=== PATIENT | female | born 1980 | race Caucasian/White ===

== ENCOUNTER 2021-04-16 11:05 | Outpatient (CLI) | payer OTHER, SELFPAY ==
[2021-04-16 11:26] LABS: Hematocrit 33.7 % (37.0-47.0); Hemoglobin 11.5 g/dL (12.0-15.0)
== END 2021-04-16 11:06 | disposition home or self-care (01) ==
PROVIDERS: Visit Provider Obstetrics & Gynecology
DX: O03.9 Complete or unspecified spontaneous abortion without complication (principal); Z3A.00 Weeks of gestation of pregnancy not specified
CPT/HCPCS: 36415; 85014; 85018; 86900; 86901

== ENCOUNTER 2021-04-20 15:30 | Observation (INO) | payer OTHER, BC, SELFPAY ==
[2021-04-15 14:10] VITALS: BMI 25.4
--- NOTE | 2021-04-17 08:01 | PM.IMHP ---
H&P: HPI History of Present Illness Date/Time: 04/17/21 08:01 41-year-old 2 para 1 admitted for suction dilatation and curettage secondary to incomplete AB. Ultrasound proved proves no growth in the fetus. She is admitted for suction dilatation curettage Chief Complaint: incomplete AB Review of Systems Review of Systems: All systems reviewed & are unremarkable except as noted in HPI and below PMFSH Social History Social History Smoking status: Never smoker Alcohol intake: former Meds Home Medications and Allergies Home Medications Medication Instructions Recorded Confirmed Type cetirizine [Zyrtec] 10 mg PO DAILY 04/15/21 04/15/21 History ibuprofen 400 mg PO DAILY PRN 04/15/21 04/15/21 History magnesium 750 mg PO DAILY 04/15/21 04/15/21 History Allergies Allergy/AdvReac Type Severity Reaction Status Date / Time sulfamethoxazole Allergy Swelling Verified 04/15/21 14:03 [From Bactrim] trimethoprim [From Bactrim] Allergy Swelling Verified 04/15/21 14:03 Exam Const: General: no acute distress Eyes: General: appearance normal, both eyes and all related structures Neck: Neck: supple and no JVD Thyroid: thyroid normal Resp: Effort & Inspection: normal respiratory effort Auscultation: clear to auscultation bilaterally Cardio: Rate: regular rate Rhythm: regular rhythm GI: Inspection: non-distended GI Palp: Yes Soft to palpation, No Tenderness to palpation present (GI) and No Guarding due to palpation present (GI) Auscultation: normal bowel sounds : External Female Exam: normal external appearance Speculum Exam - Vagina: normal appearance of the vagina Bimanual exam- vagina & uterus: enlarged Skin: General skin exam: no rashes or lesions noted Extrem: General: normal to inspection and no edema Psych: Mental Status: mental status grossly normal Affect: normal affect Assessment and Plan Additional Plan impression: Incomplete AB Plan: Suction dilatation curettage
[2021-04-20] VITALS (26 sets, daily range): BP systolic 73–112; BP diastolic 56–84; PULSE 59–112; RESP 12–18; TEMP 36.6–37; O2SAT 100; BMI 25.1
--- NOTE | ~2021-04-20 | US_ITS ---
EXAMINATION: US pelvic complete DATE: 04/20/2021 13:41 INDICATION: Hemorrhage after D&C TECHNIQUE: Multiple transabdominal and endovaginal sonographic images of the pelvis were obtained. COMPARISON: None. FINDINGS: The uterus measures 8.9 x 5.9 x 6.4 cm. There is a Grayson catheter in the endometrial canal to 10 cannot bleeding. The endometrial complex is difficult to measure due to the presence of the Fol ey catheter. The ovaries are not visualized however no adnexal abnormality is seen. There is no free fluid in the pelvis. IMPRESSION: 1. No sonographic correlate identified for the patient's symptoms. Reviewed, dictated and finalized at location A.
--- NOTE | 2021-04-20 10:36 | WPDHPUPDATE1 ---
History and Physical Update Update Date/Time: 04/20/21 10:36 History and Physical has been reviewed, including an updated exam of the patient. There are NO changes in the patient's condition. Risks, benefits, and alternatives have been discussed and questions answered. Patient agrees to proceed with procedure.
--- NOTE | 2021-04-20 11:20 | P.PNAN_ITS ---
Anes - Initial Pre Proc Eval Procedure: Operation Date: 04/20/21 12:30 Proposed Procedures p Suction Dilatation and Curettage - Zachariah Piper MD Date/Time: 04/20/21 11:20 Surgeon: Zachariah Piper MD Pre Op Diagnosis: missed AB Patient Data Age: 41 Gender: F Height: 1.75 m Weight: 78 kg Allergies Allergy/AdvReac Type Severity Reaction Status Date / Time sulfamethoxazole Allergy Swelling Verified 04/20/21 11:17 [From Bactrim] trimethoprim [From Bactrim] Allergy Swelling Verified 04/20/21 11:17 Home Medications Medication Instructions Recorded Confirmed Type cetirizine [Zyrtec] 10 mg PO DAILY 04/15/21 04/20/21 History ibuprofen 400 mg PO DAILY PRN 04/15/21 04/20/21 History magnesium 750 mg PO DAILY 04/15/21 04/20/21 History hydrocodone-acetaminophen 1 tablet PO Q4H PRN #20 tablet 04/20/21 Rx Patient hx anesthesia problems: none Family hx anesthesia problems: none [facility] Social History Social History Smoking status: Never smoker Alcohol intake: former Living arrangements: with family Anes - Eval Final PreProcedure Day of Procedure 04/20/21 11:20 Patient weight: normal Heart: regular rate and rhythm Lungs: clear to auscultation Airway: Mallampati scale class 1 Neurological: alert and oriented Last oral intake: >/= 8 hours ASA classification: I Emergent: no Anesthetic plan: proceed Anesthesia type and monitoring: general GIVS and standard monitoring Informed Consent: The patient's anesthetic plan and its attendant risks and benefits were discussed with the patient/family/POA. Questions were solicited and answers provided to the satisfaction of the patient/family/POA.
[2021-04-20] MEDS: ACETAMINOPHEN 500 MG TABLET 1000 MG PO (11:22)
[2021-04-20] MEDS: LACTATED RINGERS 1,000 ML 30 ML IV CONT ×2 (11:23→13:16)
[2021-04-20 12:55] LABS: Hematocrit 32.2 % (37.0-47.0)
--- NOTE | 2021-04-20 13:02 | W.PM.PROC2 ---
Procedure Note - Detailed Date of Procedure 04/20/21 Pre-op Diagnosis missed AB Post-op Diagnosis same Procedure Performed Suction dilatation and curettage Surgeon Zachariah Piper MD Anesthesia MAC and local Indications this is a 41-year-old female 2 para 1 with missed AB Findings uterus sounded to 10cm. Tissue consistent with products of conception. Description of Procedure The patient was prepped draped in the normal sterile fashion placed in the dorsal lithotomy position. Under excellent IV sedation weighted speculum was placed in posterior fornix vagina. Anterior lip of the cervix was grasped with a single-tooth tenaculum and 2.5cc of 1% xylocaine anesthesia placed at 2, 4, 8, 10:00 a.m. of the cervix. Uterus sounded to 10cm. Serial dilatation with fragmented dilators performed followed by passage of the 10. Suction curette. A large to moderate amount of tissue was removed. Bleeding ensued and she was given Methergine and T XA no further tissue could be removed. As the blood loss mounted to nearly a 1000cc a Grayson catheter was placed in 20cc was placed in the bulb which stopped her bleeding. She would remained completely stable throughout the procedure but the Grayson bulb remains and the patient was taken recovery with an ultrasound to be undertaken in recovery. She will be watched postoperatively at least 24 hours. All sponge needle and instrument counts were correct Estimated Blood Loss 1,000 Drains No Packing Yes ( Grayson was placed in the uterus with 20cc and the bulb) Pathology yes Complications Other complications ( heavier than normal bleeding.) Condition stable Disposition PACU
--- NOTE | 2021-04-20 13:35 | SUR.PHASEI ---
2377- Call from Dr. Piper for update on patient's status at this time. Reported patient's H&H from 1246 stable at 11.0, 32.2. VS stable with HR in 60's, BP 100's over 60's, 100% on room air. Patient's ultrasound just completed in PACU. Clarified patient's transfusion of [address] Piper hold blood transfusion at this time and recheck H&H in 4-5 hours and page him when report is ready for ultrasound.
--- NOTE | 2021-04-20 13:57 | SUR.PHASEI ---
3718- Page to Dr. Piper at this time to notify him patient's ultrasound report is available. Awaiting call back at this time.
--- NOTE | 2021-04-20 14:05 | SUR.PHASEI ---
1405- Call from Dr. Piper with ultrasound results reported to him. Per Dr. Roberta Toledo he is OK with patient being transferred to OB Second unit at this time with results of ultrasound and stable vital signs. Orders for H&H lab draw at 1700 and continue to hold blood transfusion for 2 units, 2GM Ancef IVPB once to be ordered and given in OB Second. Dr. Piper will round on patient in OB Second room around 1600 or 1630 and remove inflated hagan catheter at that time.
--- NOTE | 2021-04-20 15:00 | OBADM ---
This patient, Chelsea Perales, admitted to the OB room OB Post 111 for observation. Patient/family oriented to hospital policies and general routines including ID bracelet, bed and alarms, visiting hours, pain management, procedures, bathroom and other care routines, personal items, smoking policy, room service/diet, and visiting hours. Patient/Family are encouraged to report perceived risks to care and to ask questions if they do not understand what they are told or what they should do.
[2021-04-20] MEDS: LACTATED RINGERS 1,000 ML 150 ML IV CONT ×2 (16:01→23:59)
[2021-04-20] MEDS: ceFAZolin 2 GM/D5W 50 ML 2 GM/50 ML BAG IVPB (16:01)
[2021-04-20 18:02] LABS: Hematocrit 28.9 % (37.0-47.0)
--- NOTE | 2021-04-20 18:30 | PC.NURSE ---
Called Dr. Roberta Toledo with lab results and pt update.
[2021-04-20] MEDS: IBUPROFEN 600 MG TABLET PO (19:26)
[2021-04-20] MEDS: HYDROcodone/acetaminophen (*CRX) 5-325 MG TABLET 1 TAB PO (23:58)
[2021-04-21] VITALS: BP 108/56; PULSE 81
[2021-04-21 00:01] VITALS: RESP 18; TEMP 36.8
[2021-04-21] MEDS: HYDROcodone/acetaminophen (*CRX) 5-325 MG TABLET 1 TAB PO (04:56)
--- NOTE | 2021-04-21 06:01 | P.PNOB_ITS ---
OB - PN: Subj Subjective Date/time seen: 04/21/21 06:01 Patient comments: no complaints and pain well controlled OB - PN: Obj Data Labs CBC & Chem 7: 04/20/21 17:51 Labs: Laboratory Results - last 24 hr 04/20/21 04/20/21 04/20/21 12:42 12:46 17:51 Hgb 11.0 L 10.0 L Hct 32.2 L 28.9 L Blood Type A Positive Antibody Screen Negative Crossmatch See Detail Imaging Radiologist's impression: Impressions Pelvis Ultrasound 04/20/21 13:43 IMPRESSION: 1. No sonographic correlate identified for the patient's symptoms. OB - PN A/P Plan day: 1 Comments: remove hillary this am Time Spent With Patient Time: Total time spent is greater than 50% in coordination of care (as documented) at patient's floor/unit and/or counseling patient: Time with patient: less than 15 minutes Review of Systems Review of Systems: All systems reviewed & are unremarkable except as noted in HPI and below Exam Const: General: no acute distress Eyes: General: appearance normal, both eyes and all related structures Neck: Neck: supple and no JVD Thyroid: thyroid normal Resp: Effort & Inspection: normal respiratory effort Auscultation: clear to auscultation bilaterally Cardio: Rate: regular rate Rhythm: regular rhythm GI: Inspection: non-distended GI Palp: Yes Soft to palpation, No Tenderness to palpation present (GI) and No Guarding due to palpation present (GI) Auscultation: normal bowel sounds : General: Yes bladder normal to palpation External Female Exam: normal e xternal appearance Speculum Exam - Vagina: normal vaginal discharge and No vaginal bleeding Speculum Exam - Cervix: nontender Bimanual exam- vagina & uterus: bladder normal to palpation and No Cervical tenderness present OB/external & speculum: No vaginal bleeding Skin: General skin exam: no rashes or lesions noted Extrem: General: normal to inspection and no edema Psych: Mental Status: mental status grossly normal Affect: normal affect
[2021-04-21 06:10] VITALS: BP 101/54; PULSE 79
[2021-04-21 06:11] VITALS: RESP 18; TEMP 36.6
[2021-04-21 06:23] LABS: Hematocrit 27.7 % (37.0-47.0); Hemoglobin 9.4 g/dL (12.0-15.0)
[2021-04-21 07:04] VITALS: BP 102/65; PULSE 74
--- NOTE | 2021-04-21 09:38 | PC.NURSE ---
0610-Grayson bulb removed without difficulty. Scant blood noted upon removal.
--- NOTE | 2021-04-21 09:39 | PC.NURSE ---
0630-Dr.Dalla Toledo gave order to discharge pt two hours after hagan bulb removal if no bleeding noted.
--- NOTE | 2021-04-22 07:25 | PM.DS ---
DS: Admitting Diagnosis Admitting Diagnosis 1st trimester missed AB DS: Summary Hospital Course Hospital Course: the patient was admitted for a suction D&C secondary to a first-trimester missed AB. There was moderate to heavy amount of bleeding resulting in a 1000cc of blood loss. A Grayson catheter was placed in the uterus and her bleeding stopped. Her postop day 1 hemoglobin was 10.0. The Grayson was removed from her uterus and her bleeding was minimal. She was up, ambulating, generally without complaints. Time Spent with Patient Time attestation: Total time spent providing and/or coordinating discharge services: Exam Const: General: no acute distress Eyes: General: appearance normal, both eyes and all related structures Neck: Neck: supple and no JVD Thyroid: thyroid normal Resp: Effort & Inspection: normal respiratory effort Auscultation: clear to auscultation bilaterally Cardio: Rate: regular rate Rhythm: regular rhythm GI: Inspection: non-distended GI Palp: Yes Soft to palpation, No Tenderness to palpation present (GI) and No Guarding due to palpation present (GI) Auscultation: normal bowel sounds : General: Yes bladder normal to palpation External Female Exam: normal external appearance Speculum Exam - Vagina: normal vaginal discharge and No vaginal bleeding Speculum Exam - Cervix: nontender Bimanual exam- vagina & uterus: bladder normal to palpation and No Cervical tenderness present OB/external & speculum: No vaginal bleeding Skin: General skin exam: no rashes or lesions noted Extrem: General: normal to inspection and no edema Psych: Mental Status: mental status grossly normal Affect: normal affect DS: Data Data Completed and Pending Pending studies at discharge: Pending at discharge 04/20/21 12:28 Surgical [PTH] Routine Discharge Plan Discharge Attending physician on discharge: Zachariah Piper Discharging Clinician: Zachariah Piper Patient Disposition: Home, Self-Care Activity: may shower and pelvic rest Diet: regular Wound Care Instructions: follow printed instructions Discharge Instructions: Some Complications to Watch for: ? Excessive vaginal drainage (more than one pad every couple of hours). Additional Instructions: ? Expect some vaginal spotting for 2-4 days. ? Nothing vaginally (i.e. douching, intercourse, tampons) until follow up visit. Stand Alone Forms: General Discharge Instructions Follow-up/Referrals: Zachariah Piper MD [Physician] - Discharge Medications: New hydrocodone-acetaminophen 5-325 mg tablet 1 tablet PO Q4H PRN (Reason: pain) Qty: 20 RF: 0 Continued cetirizine [Zyrtec] 10 mg Tablet 10 mg PO DAILY RF: 0 ibuprofen 200 mg Tablet 400 mg PO DAILY PRN (Reason: MIGRAINE) RF: 0 magnesium 250 mg Tablet 750 mg PO DAILY RF: 0 Date of admission: 04/20/21 15:30 Primary Care Provider: PHYSICIAN NOT ON STAFF,NONSTAFF Admitting Provider: Zachariah Piper Attending physician on admission: Zachariah Piper Condition: Stable
== END 2021-04-21 09:10 | disposition home or self-care (01) ==
LOC: ANHOBPP 15:45
PROVIDERS: Admitting Provider Obstetrics & Gynecology; Visit Provider Obstetrics & Gynecology
PROC: (CPT 59812; principal; 2021-04-20 12:30)
DX: O02.1 Missed abortion (principal); O03.6 Delayed or excessive hemorrhage following complete or unspecified spontaneous abortion; Z3A.00 Weeks of gestation of pregnancy not specified
CPT/HCPCS: 59812; 36415; 76856; 81229; 85014; 85018; 86850; 86900; 86901; 86920; 88305; A9270; G0378; J0690; J2210; J2250; J2405; J2704; J3010; J7120